=== PATIENT | male | born 1930 | race Caucasian/White ===

== ENCOUNTER → 2017-03-01 | Outpatient (CLI) | payer OTHER | END | disposition home or self-care (01) | LOC: PCVCCLINIC 14:39 | PROVIDERS: ATTEND Internal Medicine Cardiovascular Disease | DX: E11.9 Type 2 diabetes mellitus without complications (principal); R06.09 Other forms of dyspnea; R55 Syncope and collapse; Z87.891 Personal history of nicotine dependence; Z79.84 Long term (current) use of oral hypoglycemic drugs | CPT/HCPCS: 93005; G0463 ==

== ENCOUNTER → 2017-05-13 | Outpatient (CLI) | payer OTHER ==
--- NOTE | 2017-05-13 16:53 | PCVCIMAG ---
APPROVED REPORT Study performed: 05/13/2017 08:15:41 EXAM: Comprehensive 2D, Doppler, and color-flow Echocardiogram Patient Location: Echo lab Status: routine BSA: 1.84 HR: 79 bpmBP: 118/68 mmHg Rhythm: NSR Other Information Study Quality: Adequate Indications Diabetes Dyspnea near syncope 2D Dimensions LVEF(%): 32.61 (>50%) IVSd: 14.19 (7-11mm)LVOT Diam: 20.73 (18-24mm) LVDd: 37.44 mm PWd: 12.13 (7-11mm)Ascending Ao: 38.73 (22-36mm) LVDs: 31.78 (25-40mm) Left Atrium: 34.43 (27-40mm) Aortic Root: 37.26 mm LV Single Plane 4CH: 55.36 % LV Single Plane 2CH: 61.96 %Kline's LVEF: 58.66 % Biplane EF: 59.5 % Volumes Left Atrial Volume (Systole) Single Plane 4CH: 45.87 mLSingle Plane 2CH: 48.85 mL LA ESV Index: 27.00 mL/m2 Aortic Valve AoV Peak Rohan.: 2.74 m/s AO Peak Gr.: 22.16 mmHgLVOT Max P.88 mmHg AO Mean Gr.: 15.56 mmHgLVOT Mean P.96 mmHg AO V2 Mean: 1.79 m/sLVOT Max V: 1.22 m/s AO V2 VTI: 57.80 cmLVOT Mean V: 0.79 m/s SKINNY (VTI): 1.54 [id number] V1 VTI: 26.34 cm SKINNY Vmax: 1.50 cm2 AI Vmax: 5.14 m/sSV (LVOT): 88.85 mL AI Orange: 2.69 m/s2 AI PHT: 553.14 ms Mitral Valve E/A Ratio: 0.6 MV Decel. Time: 374.09 ms MV E Max Rohan.: 0.56 m/s MV A Rohan.: 0.87 m/s IVRT: 128.03 ms Pulmonary Valve PV Peak Rohan.: 1.06 m/sPV Peak Gr.: 4.47 mmHg Pulmonary Vein P Vein S: 0.26 m/sP Vein A: 0.34 m/s P Vein D: 0.34 m/sP Vein A Dur.: 114.2 msec P Vein S/D Ratio: 0.76 Tricuspid Valve TR Peak Rohan.: 2.51 m/s TR Peak Gr.: 25.19 mmHg Left Ventricle The left ventricle is normal size. There is normal LV segmental wall motion. Mild concentric left ventricular hypertrophy. Left ventricular systolic function is normal. The left ventricular ejection fraction is within the normal range. LVEF is 60-65%. Grade I - abnormal relaxation pattern. Right Ventricle The right ventricle is normal size. The right ventricular systolic function is normal. Atria The left atrium size is normal. The right atrium size is normal. Aortic Valve The aortic valve is mildly calcified. Mild aortic regurgitation. There is mild valvular aortic stenosis. Calculated aortic valve area is 1.5 cm2 with maximum pressure gradient of 30 mmHg and mean pressure gradient of 16 mmHg. Mitral Valve The mitral valve is normal in structure. Trace mitral regurgitation. No evidence of mitral valve stenosis. Tricuspid Valve The tricuspid valve is normal in structure. Mild tricuspid regurgitation with PAP of 32 mmHg. Pulmonic Valve The pulmonary valve is normal in structure. There is no pulmonic valvular regurgitation. Great Vessels The aortic root is normal in size. Ascending aorta is minimally dilated to 3.9 cm. IVC is normal in size and collapses with >50% inspiration Pericardium There is no pericardial effusion. <Conclusion> The left ventricle is normal size. Mild concentric left ventricular hypertrophy. Left ventricular systolic function is normal. Grade I - abnormal relaxation pattern. The right ventricle is normal size. The left atrium size is normal. There is mild valvular aortic stenosis. Calculated aortic valve area is 1.5 cm2 with maximum pressure gradient of 30 mmHg and mean pressure gradient of 16 mmHg. Mild aortic regurgitation. Trace mitral regurgitation. Mild tricuspid regurgitation with PAP of 32 mmHg.
== END | disposition home or self-care (01) ==
LOC: PCVCIMAG 08:11
PROVIDERS: ATTEND Internal Medicine Cardiovascular Disease
DX: I08.2 Rheumatic disorders of both aortic and tricuspid valves (principal); E11.9 Type 2 diabetes mellitus without complications; R06.00 Dyspnea, unspecified; R55 Syncope and collapse
CPT/HCPCS: 93306

== ENCOUNTER → 2017-06-14 | Outpatient (CLI) | payer OTHER | END | disposition home or self-care (01) | LOC: PCVCCLINIC 14:37 | PROVIDERS: ATTEND Internal Medicine Cardiovascular Disease | DX: I35.0 Nonrheumatic aortic (valve) stenosis (principal); R55 Syncope and collapse; H83.2X9 Labyrinthine dysfunction, unspecified ear; Z79.899 Other long term (current) drug therapy; Z87.891 Personal history of nicotine dependence | CPT/HCPCS: 93005; G0463 ==